=== PATIENT | female | born 1990 | race Caucasian/White ===

== ENCOUNTER 2018-03-23 11:23 | Emergency (ER) | payer BC ==
[2018-03-23] MEDS ORDERED: ONDANSETRON 4 MG/2 ML VIAL ONE (12:01)
[2018-03-23] MEDS ORDERED: MORPHINE 4 MG/ML SYR ONE (12:01)
[2018-03-23] MEDS ORDERED: NA CHLORIDE 0.9% 1,000 ML ONE (12:01)
[2018-03-23 12:10] LABS: Absolute Lymphocytes (CBC) 0.5 K/uL (0.7-4.9); Absolute Monocytes 0.5 K/uL (0.1-1.3); Absolute Neutrophil 9.6 K/uL (1.8-8.0); Basophils % 0.2 % (0-1.3); Eosinophils % 1.1 % (0-4.4); Hematocrit 45.2 % (36.0-45.0); Lymphocytes % 4.3 % (15.3-44.8); MCH 29.4 pg (27.0-35.0); MCV 87.6 fL (80-100); MPV 10.1 fL (7.6-11.3); Monocytes % 4.4 % (3.3-12.3); RBC Red Blood Cell Count 5.16 M/uL (3.86-4.86)
[2018-03-23 12:20] LABS: Albumin 4.2 g/dL (3.4-5.0); Bilirubin Direct 0.2 mg/dL (0-0.2); Bilirubin Total 0.7 mg/dL (0.2-1.0); Potassium 4.6 mmol/L (3.5-5.1); Protein, Total 7.8 g/dL (6.4-8.2)
[2018-03-23 12:59] LABS: Blood Morphology Comment NOT SEEN (NOT SEEN); Platelet Estimate ADEQ; Urine White Blood Cell Casts OK
--- NOTE | 2018-03-23 13:14 | RAD REPORT ---
EXAM DESCRIPTION: US - Abdomen Exam Limited - 03/23/2018 12:55 pm CLINICAL HISTORY: Abdominal pain. COMPARISON: None. FINDINGS: The gallbladder wall is not thickened. A gallstone is not seen. A 4 millimeter polyp is p resent The biliary tree is normal caliber. IMPRESSION: 4 millimeter gallbladder polyp
--- NOTE | 2018-03-23 15:29 | ER ---
Nurse's Notes [facility] Name: Julia Becker Age: 27 yrs Sex: Female : 1990 Arrival Date: 03/23/2018 Time: 11:25 Bed 6 Private MD: Diagnosis: Nausea and vomiting;Diarrhea, unspecified;Other abdominal pain Presentation: 03/23 11:31 Presenting complaint: Patient states: I was told I have gall stones at the beginning of la1 this year and I feel like I am having a flare up, pt reports N/V and epigastric pain, last meal last night quesadillas. Transition of care: patient was not received from another setting of care. Onset of symptoms was March 23, 2018. Risk Assessment: Do you want to hurt yourself or someone else? Patient reports no desire to harm self or others. Initial Sepsis Screen: Does the patient meet any 2 criteria? No. Patient's initial sepsis screen is negative. Does the patient have a suspected source of infection? No. Patient's initial sepsis screen is negative. Care prior to arrival: None. 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 - Social history:: Smoking status: Patient/guardian denies using tobacco. - Ebola Screening: : No symptoms or risks identified at this time. Screenin:57 Abuse screen: Denies threats or abuse. Nutritional screening: No deficits noted. tw2 Tuberculosis screening: No symptoms or risk factors identified. Fall Risk None identified. Assessment: 12:06 General: Appears in no apparent distress. comfortable, well groomed, Behavior is calm, ph cooperative, appropriate for age. Pain: Complains of pain in epigastric area Pain radiates to left upper quadrant and right upper quadrant and back Pain currently is 5 out of 10 on a pain scale. Neuro: Level of Consciousness is awake, alert, obeys commands, Oriented to person, place, time, situation. Cardiovascular: Capillary refill < 3 seconds in bilateral fingers Patient's skin is warm and dry. Respiratory: Airway is patent Respiratory effort is even, unlabored. GI: Abdomen is round non-distended, Bowel sounds present X 4 quads. Abd is soft X 4 quads Abdomen is tender to palpation in epigastric area, right upper quadrant and left upper quadrant. Derm: Skin is intact, is healthy with good turgor, Skin is pink, warm \T\ dry. Musculoskeletal: Circulation, motion, and sensation intact. Range of motion: intact in all extremities. 13:30 Reassessment: Patient appears in no apparent distress at this time. Patient and/or ph family updated on plan of care and expected duration. Pain level reassessed. Patient is alert, oriented x 3, equal unlabored respirations, skin warm/dry/pink. Pt reports that pain has improved to 2/10 and denies nausea at this time. 15:00 Reassessment: Patient appears in no apparent distress at this time. Patient and/or ph family updated on plan of care and expected duration. Pain level reassessed. Patient is alert, oriented x 3, equal unlabored respirations, skin warm/dry/pink. Pt resting quietly, given water for PO challenge, tolerating well, denies nausea Patient denies pain at this time. Patient states feeling better. Vital Signs: 11:31 BP 126 / 79; Pulse 98; Resp 16; Temp 97.2; Pulse Ox 98% on R/A; Weight 81.65 kg; Height la1 5 ft. 6 in. (167.64 cm); 13:00 BP 118 / 67; Pulse 97; Resp 16; Pulse Ox 99% on R/A; ph 14:30 BP 124 / 72; Pulse 86; Resp 18; Pulse Ox 99% on R/A; ph 11:31 Body Mass Index 29.05 (81.65 kg, 167.64 cm) la1 ED Course: 11:25 Patient arrived in ED. as 11:31 Triage completed. la1 11:32 Samira Pritchard NP is PHCP. rh1 11:32 Coleman Welsh MD is Attending Physician. rh1 11:32 Arm band placed on left wrist. la1 11:36 Clarita Ulloa RN is Primary Nurse. ph 11:56 Bed in low position. Call light in reach. Pulse ox on. NIBP on. tw2 11:56 Inserted saline lock: 22 gauge in left antecubital area, using aseptic technique. Blood tw2 collected. 12:34 Ultrasound completed. Patient tolerated well. sg3 12:55 US Abdomen Limited In Process Unspecified. EDMS 15:45 No provider procedures requiring assistance completed. IV discontinued, intact, ph bleeding controlled, No redness/swelling at site. Pressure dressing applied. Administered Medications: 12:03 Drug: morphine 4 mg Route: IVP; Site: left antecubital; ph 12:30 Follow up: Response: No adverse reaction; Pain is decreased ph 12:03 Drug: Zofran 4 mg Route: IVP; Site: left antecubital; ph 13:00 Follow up: Response: No adverse reaction; Nausea is decreased ph 12:05 Drug: NS 0.9% 1000 ml Route: IV; Rate: 1 bolus; Site: left antecubital; ph 13:00 Follow up: Response: No adverse reaction; IV Status: Completed infusion ph Outcome: 15:28 Discharge ordered by . rh1 15:47 Patient left the ED. ph 15:47 Discharged to home ambulatory, with family. ph 15:47 Condition: good 15:47 Discharge instructions given to patient, Instructed on discharge instructions, follow up and referral plans. medication usage, Demonstrated understanding of instructions, follow-up care, medications, Prescriptions given X 1. Signatures: Dispatcher [employer] EDMS Nicole Akhtra Lee, RN RN la1 Clarita Ulloa RN RN Samira Koo NP ORDNANCE HANDLER rh1 Vickie Saunders RN RN tw2 Tameka Carey sg3 Corrections: (The following items were deleted from the chart) 14:31 14:16 BP 118 / 67; Pulse 97bpm; Resp 16bpm; Pulse Ox 99% RA; ph ph
--- NOTE | 2018-03-23 15:29 | EDPHYS ---
Physician Documentation [facility] Name: Julia Becker Age: 27 yrs Sex: Female : 1990 Arrival Date: 03/23/2018 Time: 11:25 Bed 6 Private MD: ED Physician Coleman Welsh HPI: 03/23 11:36 This 27 yrs old Female presents to ER via Ambulatory with complaints of rh1 Epigastric Pain. 11:36 The patient presents with abdominal pain in the epigastric area, in the upper abdomen. rh1 Onset: The symptoms/episode began/occurred this morning, at 04:30. The symptoms radiate to Associated signs and symptoms: Pertinent positives: nausea, vomiting, and diarrhea, Pertinent negatives: dysuria, fever, shortness of breath, vomiting blood. The symptoms are described as intermittent, sharp, waxing/waning. Modifying factors: The symptoms are alleviated by nothing, the symptoms are aggravated by nothing. Severity of pain: At its worst the pain was moderate in the emergency department the pain is unchanged. The patient has experienced similar episodes in the past, with the last episode occurring several months ago. The patient has not recently seen a physician. She began with upper abdominal pain this am, with N/V 10+ times throughout the morning. Reports + non - bloody diarrhea. She points at epigastric area, and reports pain radiates into flanks, points at left, but reports possibly bilaterally. Reports she thinks symptoms are caused by gallstones. She was told in May of this year she has stones, per US, and had an EGD as well. She was supposed to have surgery with Dr. Kimball but has not due to "not wanting to." No fever, urinary symptoms, cough, SOB.. 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 - Social history:: Smoking status: Patient/guardian denies using tobacco. - Ebola Screening: : No symptoms or risks identified at this time. ROS: 11:36 Constitutional: Negative for fever, chills rh1 11:36 Cardiovascular: Negative for chest pain. 11:36 Respiratory: Negative for cough, shortness of breath. 11:36 Abdomen/GI: Positive for abdominal pain, nausea, vomiting, and diarrhea. 11:36 Back: Positive for radiated pain. 11:36 : Negative for urinary symptoms, small amounts, burning with urination. 11:36 Neuro: Negative for altered mental status. 11:36 All other systems are negative. Exam: 11:36 Constitutional: This is a well developed, well nourished patient who is awake, alert, rh1 and in no acute distress. Head/Face: Normocephalic, atraumatic. Neck: Trachea midline, and no cervical lymphadenopathy. Supple, full range of motion without nuchal rigidity. No Meningismus. Chest/axilla: Normal chest wall appearance and motion. Nontender with no deformity. No lesions are appreciated. Cardiovascular: Regular rate and rhythm with a normal S1 and S2. No gallops, murmurs, or rubs. No JVD. No pulse deficits. Respiratory: Lungs have equal breath sounds bilaterally, clear to auscultation. No rales, rhonchi or wheezes noted. No increased work of breathing. 11:36 Back: No spinal tenderness. No costovertebral tenderness. Full range of motion. Skin: Warm, dry with normal turgor. Normal color with no rashes, no lesions, and no evidence of cellulitis. MS/ Extremity: Pulses equal, no cyanosis. Neurovascular intact. Full, normal range of motion. 11:36 Abdomen/GI: Inspection: abdomen appears normal, bruising, is not seen, distension, is not seen, Bowel sounds: normal, in all quadrants, active, all quadrants, Palpation: soft, in all quadrants, mild abdominal tenderness, in the right upper quadrant and left upper quadrant, moderate abdominal tenderness, in the epigastric area, rebound tenderness, is not appreciated, involuntary guarding, is not appreciated, Indicators: McBurney's point is not tender, Gillespie's sign is negative, Rovsing's sign is negative, Liver: no appreciated palpable abnormalities. 11:36 Neuro: Orientation: is normal, to person, place \\T\\ time. Mentation: is normal, lucid, able to follow commands, Motor: is normal, moves all fours, Sensation: is normal, no obvious gross deficits, numbness, is not appreciated, tingling, is not appreciated, Gait: is steady, at a normal pace, without difficulty. 14:47 Abdomen/GI: Inspection: abdomen appears normal, Palpation: abdomen is soft and rh1 non-tender, in all quadrants, rebound tenderness, is not appreciated, involuntary guarding, is not appreciated. Vital Signs: 11:31 BP 126 / 79; Pulse 98; Resp 16; Temp 97.2; Pulse Ox 98% on R/A; Weight 81.65 kg; Height la1 5 ft. 6 in. (167.64 cm); 13:00 BP 118 / 67; Pulse 97; Resp 16; Pulse Ox 99% on R/A; ph 14:30 BP 124 / 72; Pulse 86; Resp 18; Pulse Ox 99% on R/A; ph 11:31 Body Mass Index 29.05 (81.65 kg, 167.64 cm) la1 MDM: 11:36 Patient medically screened. rh1 14:47 Physician consultation: Roscoe Arora MD was called at 14:47, was contacted at 14:47, 1 regarding consult, patient's condition, discussed US findings, not likely source of symptoms today, no need for surgery at this time. 15:28 Data reviewed: vital signs, nurses notes, lab test result(s), radiologic studies, rh1 ultrasound, and as a result, I will discharge patient. Data interpreted: Pulse oximetry: on room air is 99 %. Interpretation: normal. Counseling: I had a detailed discussion with the patient and/or guardian regarding: the historical points, exam findings, and any diagnostic results supporting the discharge/admit diagnosis, lab results, radiology results, the need for outpatient follow up, a family practitioner, to return to the emergency department if symptoms worsen or persist or if there are any questions or concerns that arise at home. Special discussion: Based on the patient's Hx, exam, and Dx evaluation, there is no indication for emergent surgery or inpatient Tx. It is understood by the patient/guardian that if the Sx's persist or worsen they need to return immediately for re-evaluation. 03/23 11:44 Order name: Basic Metabolic Panel; Complete Time: 12:22 rh1 03/23 11:44 Order name: CBC with Diff; Complete Time: 13:06 rh1 03/23 11:44 Order name: Creatinine for Radiology; Complete Time: 12:22 rh1 03/23 11:44 Order name: Hepatic Function; Complete Time: 12:22 [facility] 03/23 11:44 Order name: Lipase; Complete Time: 12:22 [facility] 03/23 11:44 Order name: Amylase, Serum; Complete Time: 12:22 [facility] 03/23 11:44 Order name: IV Saline Lock; Complete Time: 12:05 [facility] 03/23 11:44 Order name: Labs collected and sent; Complete Time: 12:05 [facility] 03/23 11:44 Order name: US Abdomen Limited; Complete Time: 13:16 [facility] 03/23 12:22 Order name: CBC Smear Scan; Complete Time: 13:06 [facility] 03/23 14:47 Order name: PO challenge; Complete Time: 15:37 [facility] Administered Medications: 12:03 Drug: morphine 4 mg Route: IVP; Site: left antecubital; ph 12:30 Follow up: Response: No adverse reaction; Pain is decreased ph 12:03 Drug: Zofran 4 mg Route: IVP; Site: left antecubital; ph 13:00 Follow up: Response: No adverse reaction; Nausea is decreased ph 12:05 Drug: NS 0.9% 1000 ml Route: IV; Rate: 1 bolus; Site: left antecubital; ph 13:00 Follow up: Response: No adverse reaction; IV Status: Completed infusion ph Disposition: 16:51 Co-signature as Attending Physician, Coleman Welsh MD I agree with the assessment and kdr plan of care. Disposition: 03/23/18 15:28 Discharged to Home. Impression: Nausea and vomiting, Diarrhea, unspecified, Other abdominal pain. - Condition is Stable. - Discharge Instructions: Abdominal Pain, Adult, Diarrhea, Adult, Nausea and Vomiting, Adult. - Prescriptions for Zofran 4 mg Oral Tablet - take 1 tablet by ORAL route every 12 hours As needed; 6 tablet. - Medication Reconciliation Form, Thank You Letter, Antibiotic Education, Prescription Opioid Use form. - Follow up: Private Physician; When: 1 - 2 days; Reason: Recheck today's complaints, Continuance of care, Re-evaluation by your physician. Follow up: Emergency Department; When: As needed; Reason: Fever > 102 F, If symptoms return, Trouble breathing, Worsening of condition. - Problem is new. - Symptoms have improved. Signatures: Dispatcher [employer] EDMS Coleman Welsh MD MD kdr Darien Nicholas RN RN la1 Clarita Ulloa RN RN ph [place], Samira, BINDERY CUTTER OPERATOR BINDERY CUTTER OPERATOR rh1 Corrections: (The following items were deleted from the chart) 15:47 15:28 03/23/2018 15:28 Discharged to Home. Impression: Nausea and vomiting; Diarrhea, ph unspecified; Other abdominal pain. Condition is Stable. Discharge Instructions: Abdominal Pain, Adult, Diarrhea, Adult, Nausea and Vomiting, Adult. Forms are Medication Reconciliation Form, Thank You Letter, Antibiotic Education, Prescription Opioid Use. Follow up: Private Physician; When: 1 - 2 days; Reason: Recheck today's complaints, Continuance of care, Re-evaluation by your physician. Follow up: Emergency Department; When: As needed; Reason: Fever > 102 F, If symptoms return, Trouble breathing, Worsening of condition. Problem is new. Symptoms have improved. rh1
== END 2018-03-23 15:47 | disposition home or self-care (01) ==
LOC: ER 11:23
DX: R19.7 Diarrhea, unspecified (principal); R10.13 Epigastric pain
CPT/HCPCS: 36415; 76705; 80048; 80076; 82150; 83690; 85025; 96361; 96374; 96375; 99284; J2405; J7030